=== PATIENT | female | born 1990 | race Caucasian/White ===

== ENCOUNTER 2017-02-05 08:23 | Day surgery (SDC) | payer BC ==
[2017-02-05 08:45] LABS: HEMATOCRIT 42.4 % (36.0-48.0); HEMOGLOBIN 14.2 g/dL (12-16); MCH 31.3 pg (26.0-34.0); MCHC 33.5 g/dL (31.0-37.0); MCV 93.4 fL (80.0-100.0); MEAN PLATELET VOLUME 10.5 fL (7.4-10.4); RBC 4.54 10x6/uL (4.00-5.40); RDW 12.5 % (11.5-14.5); WBC 9.8 10x3/uL (4.8-10.8)
[2017-02-05] MEDS ORDERED: ZOFRAN4 MG PO (09:41)
[2017-02-05] MEDS ORDERED: BENTYL10 MG PO (09:41)
[2017-02-05 09:48] VITALS: BP 112/79; BMI 21.3
[2017-02-05 09:51] LABS: HCG URINE NEGATIVE (NEGATIVE)
--- NOTE | 2017-02-05 18:59 | NUR ---
1840 RECEIVED FROM PACU POST EXAM UNDER ANESTHESIA. BIOPSY OF CONDYLOMA ABC. RESP EVEN AND NONLABORED. AWAKE AND TALKING. HAS RECTAL PACKING IN NO BLEEDING NOTED. SLIGHT BURNING TO BUTTOCKS. MOTHER PRESENT.
--- NOTE | 2017-02-05 19:13 | NUR ---
1910 TOLERATED LIQUIDS NO BLEEDING FROM RECTUM HAS GEL PACKING IN VOIDED AND ASSISTED BACK TO BED.
--- NOTE | 2017-02-05 19:14 | NUR ---
1911 OFFERED PAIN MEDS BUT DENIED NEED FOR MEDS AT THIS TIME.
--- NOTE | 2017-02-05 19:28 | NUR ---
1930 IV DCD CATHETER INTACT. WENT OVER DISCHARGE INSTRUCTIONS NO STRAINING ABOUT PACKING AND SCRIPTS WENT OVER THEM WITH HER AND MOTHER. VERBALLY UNDERSTANDS.
--- NOTE | 2017-02-05 19:40 | NUR ---
1939 DISCHARGED TO HOME VIA W/C WITH MOTHER.
--- NOTE | 2017-02-11 09:40 | HP ---
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 The patient had a low-grade squamous intraepithelial lesion. She is to undergo anal evaluation under anesthesia with ablation of these condylomata biopsies. The risks, possible complications, and alternatives to procedure were explained to the patient. She elects to proceed. The discussion specifically included, but was not limited to, bleeding requiring an emergency reoperation, infection, as well as the need for surveillance procedures in the future and perhaps even ablative or biopsy procedures in the future as well. The patient was seen in my office. Her history and physical examination is unchanged from the office visit. TRANSINT:[id number] Voice Confirmation ID: [id number] DOCUMENT ID: [id number] JOVON GILES MD at 0940 CC: SERGIO APONTE MD and TIGRE TIERNEY DO [id number] DICTATION DATE: 02/05/17 1835 PROJECT MANAGEMENT INSTRUCTOR: 02/05/172007 [facility] 02/05/17 [place] [id number] [place] [id number]
--- NOTE | 2017-02-11 09:40 | OP ---
PATIENT NAME: ELIS PHIPPS MEDICAL RECORD: [id number] :89 LOCATION:[facility] ADMISSION DATE: SURGEON: JOVON GILES MD DATE OF OPERATION: 02/05/2017 PREOPERATIVE DIAGNOSES: Condyloma acuminata of the anus and lower rectum with a low-grade squamous intraepithelial lesion. POSTOPERATIVE DIAGNOSES: Condyloma acuminata of the anus and lower rectum with a low-grade squamous intraepithelial lesion. PROCEDURES: 1. Anal evaluation under anesthesia. 2. Multiple incisional biopsies of anal condylomata. 3. Ablation of anal condylomata with the argon plasma pan washer. SURGEON: Jovon Giles MD. HOSPICE VOLUNTEER: None. BLOOD LOSS: Minimal. ANESTHESIA: General. COMPLICATIONS: None. The risks, possible complications, and alternatives to the procedure were explained to the patient. She elects to proceed. OPERATIVE COURSE: The patient was conveyed to the operating room electively on 02/05/2017. General anesthesia was induced by the anesthesia staff. The patient was placed in the lithotomy position. Her buttocks were taped laterally. U-shaped anal retractors were placed. Multiple condylomata were noted. Utilizing a biopsy forceps, I biopsied about 10 of these condylomata, biopsying the largest of the group. I then ablated about 25 condylomata utilizing the argon plasma pan washer with the right colon setting in the forced mode. Gelfoam was applied within the anus and rectum. An air evacuation device was used to evacuate the smoke during the procedure. A combination of a sterile preparation and Marcaine were used to infiltrate the perianal tissues. A topical anesthetic was applied to the external hemorrhoids. The patient was then extubated and conveyed to post-anesthesia care unit where she was in stable condition. She will be dismissed home on Colace, Valium, as well as hydrocodone. I will see her in the office in 2-3 weeks. TRANSINT:[id number] Voice Confirmation ID: [id number] DOCUMENT ID: [id number] OPERATIVE REPORT [id number] ELIS PHIPPS JOVON GILES MD at 0940 CC: SERGIO APONTE MD and TIGRE TIERNEY DO [id number] DICTATION DATE: 02/05/171838 MANUFACTURING TEAM LEADER: 02/05/172151 [facility] 02/05/17 [facility] [address] [place] [address]
== END 2017-02-05 19:40 | disposition home or self-care (01) ==
LOC: D.OPS 08:23 → D.PAN 12:30 → D.OPS 12:30
PROVIDERS: Anesthesiology; Surgery
DX: A63.0 Anogenital (venereal) warts (principal); K64.4 Residual hemorrhoidal skin tags; Z01.812 Encounter for preprocedural laboratory examination